=== PATIENT | male | born 1985 | race American Indian/Alaskan Native ===

== ENCOUNTER 2018-02-08 19:17 | Emergency (ER) | payer SELFPAY ==
[2018-02-08 19:37] VITALS: BP 136/64
[2018-02-08] MEDS ORDERED: MOTRIN PO ONE (19:38)
--- NOTE | 2018-02-08 20:53 | XRay Report ---
FINAL REPORT PROCEDURE: XR ANKLE 3+V LT TECHNIQUE: LEFT ankle radiographs, AP, lateral, and oblique views. CPT 33631 HISTORY: left ankle and distal tib/fib pain COMPARISON: No prior studies are available for comparison. FINDINGS: Fracture (s) and/or Dislocation(s): None. Alignment: Normal. Joint space(s): Normal. Soft tissues: Normal. Bone mineralization: Normal. Foreign bodies: None. Calcaneal spurring: None. IMPRESSION: Normal Examination.
[2018-02-08] MEDS ORDERED: ULTRAM PO ONE (22:07)
--- NOTE | 2018-02-08 22:13 | Emergency Department Report ---
HPI - General Chief Complaint: Extremity Injury, Lower Time Seen by Provider: 02/08/18 21:54 - HPI HPI: Room 29 The patient is a 32-year-old male presenting with a chief complaint of left ankle pain. Patient states he tripped while walking down stairs 4 days ago hyper-plantar flexing his left foot. Patient states he was able to catch himself on the railing preventing a complete fall. There was no loss of consciousness. Patient complains of pain to the anterior aspect of the left ankle. Patient denies any other forms of pain. Patient gives his pain a score of 7/10 Location: Left ankle Duration: Occurred 4 days ago Quality: Pain Severity:7/10 Modifying factors: [see above] Context: [see above] Mode of transportation: [not driving] ED Past Medical Hx - Past Medical History Previous Medical History?: No - Surgical History Additional Surgical History: oral surgery - Family History Family history: no significant - Social History Smoking Status: Current Every Day Smoker (1/2 pack per day) Substance Use Type: Alcohol (occasional) - Medications Home Medications: Home Medications Medication Instructions Recorded Confirmed Last Taken Type HYDROcodone/APAP 10-325 [[place] 1 each PO Q4-6H PRN #20 tablet 08/30/13 Unknown Rx 10-325 mg TAB] Promethazine [Phenergan] 25 mg PO Q6H PRN #10 tablet 08/30/13 Unknown Rx Ibuprofen [Motrin 800 MG tab] 800 mg PO Q8HR PRN #20 tablet 02/08/18 Unknown Rx Tramadol HCl [Ultram] 50 mg PO Q6H PRN #10 tablet 02/08/18 Unknown Rx ED Review of Systems ROS: Stated complaint: LEFT ANKLE PAIN Other details as noted in HPI Constitutional: no symptoms reported Eyes: denies: eye pain ENT: denies: throat pain Respiratory: no symptoms reported Cardiovascular: denies: chest pain Endocrine: no symptoms reported Gastrointestinal: denies: abdominal pain Genitourinary: denies: dysuria Musculoskeletal: arthralgia, myalgia Neurological: denies: headache Physical Exam - Physical Exam Vital Signs: Vital Signs 02/08/18 02/08/18 19:32 20:41 Temperature 98.8 F Pulse Rate 60 Respiratory 16 18 Rate Blood Pressure 136/64 O2 Sat by Pulse 100 Oximetry Physical Exam: GENERAL: The patient is well-developed well-nourished male sitting in chair not appearing to be in acute distress. [] HEENT: Normocephalic. Atraumatic. Extraocular motions are intact. NECK: Supple. Trachea midline CHEST/LUNGS: There is no respiratory distress noted. HEART/CARDIOVASCULAR: Regular. There is no tachycardia. There is no gallop rub or murmur. 2+ left DP SKIN: There is no rash. There is no edema. There is no diaphoresis. NEURO: The patient is awake, alert, and oriented. The patient is cooperative. The patient has normal speech MUSCULOSKELETAL: There is no deformity of the left foot seen. There is no evidence of acute injury. ED Course Vital Signs 02/08/18 02/08/18 19:32 20:41 Temperature 98.8 F Pulse Rate 60 Respiratory 16 18 Rate Blood Pressure 136/64 O2 Sat by Pulse 100 Oximetry ED Medical Decision Making - Radiology Data Radiology results: report reviewed (left ankle x-ray), image reviewed (left ankle x-ray) interpreted by me: Left ankle x-ray-no acute fracture [facility] [address] [place] [address] XRay Report Signed Patient: MARY MOREJON MR#: [id number] : 1984 Acct:[id number] Age/Sex: 32 / M ADM Date: 02/08/18 Loc: ED Attending Dr: Ordering Physician: ALON MCMANUS MD Date of Service: 02/08/18 Procedure(s): XR ankle 3+V LT Accession Number(s): [id number] cc: ALON MCMANUS MD Fluoro Time In Minutes: FINAL REPORT PROCEDURE: XR ANKLE 3+V LT TECHNIQUE: LEFT ankle radiographs, AP, lateral, and oblique views. CPT 93437 HISTORY: left ankle and distal tib/fib pain COMPARISON: No prior studies are available for comparison. FINDINGS: Fracture (s) and/or Dislocation(s): None. Alignment: Normal. Joint space(s): Normal. Soft tissues: Normal. Bone mineralization: Normal. Foreign bodies: None. Calcaneal spurring: None. IMPRESSION: Normal Examination. Transcribed By: [facility] Dictated By: JOAN REICH Electronically Authenticated By: JOAN REICH Signed Date/Time: 02/08/182051 DD/ 51 TD/TT : 02/08/182051 - Differential Diagnosis acute ankle sprain Critical care attestation.: If time is entered above; I have spent that time in minutes in the direct care of this critically ill patient, excluding procedure time. ED Disposition Clinical Impression: Left ankle sprain, Acute left ankle pain Disposition: TO HOME OR SELFCARE Is pt being admited?: No Does the pt Need Aspirin: No Condition: Stable Instructions: Ankle Sprain (ED) Additional Instructions: Return to the emergency department immediately should you develop worsening symptoms, fever, inability to tolerate food or liquid or any other concerns. Prescriptions: Ibuprofen [Motrin 800 MG tab] 800 mg PO Q8HR PRN #20 tablet PRN Reason: Pain, Moderate (4-6) Tramadol HCl [Ultram] 50 mg PO Q6H PRN #10 tablet PRN Reason: Pain , Severe (7-10) Referrals: PRIMARY CARE, [Primary Care Provider] - 3-5 Days USMAN PINA MD [Staff Physician] - 3-5 Days Time of Disposition: 22:16
== END 2018-02-08 22:37 | disposition home or self-care (01) ==
LOC: ED 19:17
DX: S93.402A Sprain of unspecified ligament of left ankle, initial encounter (principal); F17.200 Nicotine dependence, unspecified, uncomplicated; X50.1XXA Overexertion from prolonged static or awkward postures, initial encounter; Y93.89 Activity, other specified; Y92.89 Other specified places as the place of occurrence of the external cause; Y99.8 Other external cause status
CPT/HCPCS: 99283

== ENCOUNTER 2021-05-22 10:30 | Emergency (ER) | payer SELFPAY | END 2021-05-22 11:40 | disposition left against medical advice (07) | LOC: ED 10:30 | DX: U07.1 COVID-19 (principal); Z53.21 Procedure and treatment not carried out due to patient leaving prior to being seen by health care provider ==